=== PATIENT | female | born 1935 | race Caucasian/White ===

== ENCOUNTER → 2023-08-24 14:36 | Outpatient (REF) | payer MEDICARE, OTHER, SELFPAY | LOC: DHCBC MAIN 14:36 | PROVIDERS: ATTENDING PHYSICIAN Nurse Practitioner; FAMILY PHYSICIAN Family Medicine | DX: I10 Essential (primary) hypertension (principal); R00.2 Palpitations; I47.10 Supraventricular tachycardia, unspecified; I77.810 Thoracic aortic ectasia | CPT/HCPCS: 93306 ==

== ENCOUNTER → 2023-09-07 14:49 | Outpatient (REF) | payer MEDICARE, OTHER, SELFPAY | LOC: HWRAD 14:49 | PROVIDERS: ATTENDING PHYSICIAN Internal Medicine Cardiovascular Disease; FAMILY PHYSICIAN Family Medicine | DX: I77.89 Other specified disorders of arteries and arterioles (principal); R00.2 Palpitations | CPT/HCPCS: 71275; Q9967 ==

== ENCOUNTER 2023-09-15 16:44 | Emergency (ER) | payer MEDICARE, OTHER, SELFPAY ==
[2023-09-15 16:46] VITALS: BP 153/101
[2023-09-15 17:16] LABS: % Eosinophils 2.6 % (0-6); % Immature Granulocytes 0.4 % (0-0.5); % Lymphocytes 32.7 % (20.5-51.1); % Neutrophils 53.3 % (42.2-75.2); Absolute Basophils 0.1 10^3/uL (0-0.2); Absolute Eosinophils 0.2 10^3/uL (0-0.7); Absolute Lymphocytes 2.4 10^3/uL (1.2-3.4); Absolute Monocytes 0.7 10^3/uL (0.1-0.6); Absolute Neutrophils 3.9 10^3/uL (1.4-6.5); Hematocrit 41.2 % (37.0-47.0); Hemoglobin 13.6 g/dL (12.0-16.0); Mean Corpuscular Hgb 28.2 pg (27.0-31.0); Mean Corpuscular Volume 85.5 fL (81.0-99.0); Mean Platelet Volume 9.9 fL (7.4-10.4); Nucleated Red Blood Cells % 0 %; Platelet Count 270 10^3/uL (130-400); Red Blood Cell Count 4.82 10^6/uL (4.20-5.40); Red Cell Dist. Width 15.2 % (11.5-14.5); White Blood Cell Count 7.3 10^3/uL (4.8-10.8)
[2023-09-15 17:39] LABS: Troponin I < 0.012 ng/ml
[2023-09-15 17:52] LABS: ALT (SGPT) 37 U/L (0-35); AST (SGOT) 31 U/L (14-36); Alkaline Phosphatase 125 U/L (38-126); Blood Urea Nitrogen 18 mg/dl (7-17); Calcium 10.1 mg/dl (8.4-10.2); Carbon Dioxide 27 mmol/L (22-30); Chloride 96 mmol/L (98-107); Glucose 101 mg/dl (70-99); Sodium 132 mmol/L (135-145); Total Bilirubin 0.7 mg/dl (0.2-1.3); Total Protein 7.5 g/dl (6.3-8.2); eGFR > 60.00
[2023-09-15 18:45] VITALS: BP 174/84
--- NOTE | 2023-09-15 19:10 | ED.GENMED ---
History of Present Illness
General
Chief Complaint: Back Pain
Source: patient
Exam Limitations: none
Time Seen by Provider: 09/15/23 18:36
Travel History
Have you had any contact with someone who has COVID-19?: No
Do you have any symptoms of coronavirus? Fever > 100 degrees, chills, cough, shortness of breath, sore throat, loss of taste or smell, muscle aches, or headache?: No
History of Present Illness
History of Present Illness:
This is a 88 year old female that comes in with c/o upper back pain. States that today she felt like her left arm was numb. States that she also had some discomfort in the right sided of the neck into the shoulder. States that her back feels like
somebody slapped her in the back. Patient called Dr. Lilly office and was told to come to the ER for evaluation. States that she does have a slight headache. Denies any fever, chills, chest pain, SOB, abd pain, nausea, vomiting, diarrhea,
dizziness, urinary burning.
Past History
Past History
ED Past Medical History: GERD, Hypercholesterolemia, Psychiatric (Anxiety, ) and Other (Ascending thoracic Thoracic )
ED Past Surgical History: None
Social History
Tobacco: Non-smoker
Alcohol: None
Drug: None
Living: alone
Employment: Retired
Review of Systems
Review of Systems
All Other Systems: ROS reviewed and negative except as documented in HPI and ROS
Constitutional: Reports no symptoms; Denies fever or chills
EENT: Reports no symptoms
Respiratory: Reports no symptoms; Denies cough or trouble breathing
Cardiac: Reports no symptoms; Denies chest pain
ABD/GI: Reports no symptoms; Denies abdominal pain, nausea, vomiting or diarrhea
: Reports no symptoms; Denies dysuria, frequency or urgency
Musculoskeletal: Reports neck pain (right sided into shoulder) and back pain (Mid back pain)
Skin: Reports no symptoms
Neurological: Reports numbness (tingling left arm )
Psychiatric: Reports no symptoms
Phy Exam
General Physical Exam
General Presentation: well appearing and no apparent distress
General age: appears stated age
General Skin: warm and dry
General Habitus: elderly
General Mental: alert
General Hydration: appears well hydrated
ENT Exam
ENT Exam: TM's normal, pharynx normal and neck supple
Eye Exam
Eye Exam: EOMI
Cardiovascular Exam
Cardiovascular Exam: regular rate/rhythm, no edema and normal peripheral pulses
Pulmonary Exam
Pulmonary Exam: lungs clear, no respiratory distress, no rales, chest non tender, no crackles, no rhonchi, no wheezing and no cough
Gastrointestinal Exam
Gastrointestinal Exam: normal bowel sounds, non tender, soft, no organomegaly, no pulsatile mass and non distended
Musculoskeletal Exam
Musculoskeletal Exam: full ROM (Patient stable on her feet and moving all extremities. ) and no edema
Skin Exam
Skin Exam: normal color, warm/dry, no rash and no petechia
Psychiatric Exam
Psychiatric Exam: normal mood/affect
Course
Orders/Labs/Results
Orders:
Orders
09/15/23 16:54
Electrocardiogram (*1) Urgent
Reason for Study: Palpitations
09/15/23 16:55
EKG- Treatment ONCE
09/15/23 17:07
CMP [Comprehensive Metabolic Panel] Urgent
Complete Blood Count/With Diff Urgent
Troponin I Urgent
09/15/23 19:38
0.9% Sodium Chloride 1000 ml [Nss] 1,000 ml IV BOLUS
09/15/23 19:39
CT Chest Angio W/wo Iv Contras Urgent
Comment: History of Ascending Thoracic aortic aneurysm
Reason For Exam: Upper back pain
Abnormal Lab Results
09/15/23
17:07
RDW 15.2 H %
(11.5-14.5)
Absolute Monos (auto) 0.7 H 10^3/uL
(0.1-0.6)
Monocytes % 10.0 H %
(1.7-9.3)
Sodium 132 L mmol/L
(135-145)
Chloride 96 L mmol/L
(98-107)
BUN 18 H mg/dl
(7-17)
Glucose 101 H mg/dl
(70-99)
ALT 37 H U/L
(0-35)
09/15/23 17:07
09/15/23 17:07
sodium slightly low. chloride slightly low. Slight Dehydration. Glucose nonfasting. ALT slightly elevated. Troponin <0.012
Vital Signs
Initial and Last Documented VS:
Initial Vital Signs
Temp Pulse Resp BP Pulse Ox
98.0 F 74 18 153/101 97
09/15/23 16:46 09/15/23 16:46 09/15/23 16:46 09/15/23 16:46 09/15/23 16:46
Last Documented Vital Signs
Temp Pulse Resp BP Pulse Ox
98.0 F 62 20 139/76 97
09/15/23 16:46 09/15/23 22:06 09/15/23 22:06 09/15/23 22:06 09/15/23 22:06
MDM/Problems Addressed
Differential Diagnosis Includes:
Ascending thoracic aortic aneurysm change, Musculoskeletal pain.
MDM/Problems Addressed:
This is a 88 year old female that comes in with upper back pain and earlier today had numbness in the left arm. States that she also has right sided neck and shoulder discomfort. States that she feels better now that she is at the hospital. patient
called. Dr. Lilly office and was told to come to the ER for evaluation.
Explained to patient ther her blood work shows very slight Dehydration. Her Troponin is normal. Explained that with her diagnoses of a Ascending Thoracic aortic aneurysm and her c/o back pain the went patient to come in and make sure this is not
increasing in size. Explained that a CT chest would be needed. Patient states that she is not sure if she wants this. Stats that she has an appointment with Dr. Velarde. Patient is thinking this over.
Patient has agreed to CTA of chest but states that no mater what the results she is going home
Back into see patient. Patient remains pain free. Reviewed the CTA of the chest. Explained that the difference in size is very slight and it may be the difference in the radiologist who is reading the CT scan. Patient can use Tylenol 1000mg every 6
hours for any body aches. Follow up with the Dr. Velarde and her family doctor. Return with any concerns.
Chronic conditions affecting care:
Ascending Thoracic Aortic aneurysm.
Acute Exacerbation and/or Progression of Chronic Illness:
NA
*Radiology
Radiology exam reviewed: radiology read reviewed (CTA- No acute pathology of the chest identified. Large 5.7cm ascending aortic aneurysm. Stable. )
*Pulse Oximetry
Patient hypoxic: no
*EKG
Interpreted by ED Provider?: Yes
Heart Rate: 70
Rate: normal
Rhythm: sinus
Cotter: left axis deviation
Interval: normal interval
QRS Pattern: normal QRS
Ischemia: no ischemia
*Belt Picker Interpretation
Rate: normal
Heart Rate: 62
Rhythm: sinus
*Critical Care Note
Total Time (30-74mins, 75-104mins- exclusive of procedures): Not Applicable
ED Attending Note
-
Portions of this chart may have been created with voice recognition software.� Occasional wrong word or��sound alike� substitutions may have occurred due to the inherent limitations of voice recognition software.
Discharge Plan
Departure
Patient Disposition: Home (Routine Discharge)
Date of Disposition: 09/15/23
Time of Disposition: 22:26
Patient with high blood pressure during this ER visit?: Yes
Condition: Good
Covid-19: Not Applicable
Discharge Problem:
Mid back pain
Instructions: Upper Back Pain (DC), BLOOD PRESSURE
Prescriptions:
No Action
lorazepam 0.5 MG tablet
0.5 mg PO BIDPRN PRN (Reason: anxiety)
ibuprofen 200 MG tablet
400 mg PO BIDPRN PRN (Reason: SINUS HEADACHES)
bisacodyl 5 MG tablet,delayed release (DR/EC)
5 mg PO DAILYPRN PRN (Reason: CONSTIPATION)
fluticasone propionate 1 SPRAY spray,suspension
1 spray intranasal Q24H
famotidine [Pepcid] 40 mg Tablet
20 mg PO BID
Theragen Tablet
1 tab PO DAILY
potassium chloride 20 mEq Packet
30 meq PO DAILY
metoprolol tartrate [Lopressor] 50 mg Tablet
50 mg PO HS
cholecalciferol (vitamin D3) [Vitamin D3] 25 mcg (1,000 unit) Tablet
25 mcg PO DAILY
Metamucil Fiber Thin 2 gram Wafer
2 wafer PO DAILY
amlodipine 2.5 mg Tablet
2.5 mg PO DAILY
metoprolol tartrate
75 mg PO AMHS
Referrals:
Kyle Cain DO [Family Provider] - Call in 1-3 days for appt
Gautam Velarde MD [Active] - Keep scheduled appt
Activity Restrictions/Additional Instructions:
As discussed, your blood work shows that you are very slightly Dehydration. Please increase your water intake to 8-8oz glasses daily. Your CT of the chest shows that you have a Ascending Thoracic Aortic aneurysm. This is stable at this time. Please
follow up with Dr. Velarde as scheduled. You may take Tylenol 1000mg every 6 hours for any body aches. Follow up with the family doctor for recheck. IF YOU HAVE ANY OTHER CONCERNS PLEASE RETURN TO THE EMERGENCY ROOM.
Interventions
Interventions:
*Risk Screen - Suicide Last Done: 09/15/23 18:45
*General Assessment Last Done: 09/15/23 18:45
*Neglect/Abuse Screening Last Done: 09/15/23 18:45
*ED COVID-19 Vaccine History Last Done: 09/15/23 18:45
ED-Musculoskeletal Assessment Last Done: 09/15/23 18:45
[2023-09-15 19:28] VITALS: BP 134/88
[2023-09-15 19:31] VITALS: BMI 22.4
[2023-09-15] MEDS: NSS 1000 IV (19:47)
[2023-09-15 20:26] VITALS: BP 126/70
[2023-09-15 21:13] VITALS: BP 123/73
[2023-09-15 22:06] VITALS: BP 139/76
== END 2023-09-15 22:45 | disposition home or self-care (01) ==
LOC: EMR 16:44
PROVIDERS: Emergency Medicine; EMERGENCY PHYSICIAN Emergency Medicine; FAMILY PHYSICIAN Family Medicine
DX: M54.6 Pain in thoracic spine (principal); I71.21 Aneurysm of the ascending aorta, without rupture; R03.0 Elevated blood-pressure reading, without diagnosis of hypertension
CPT/HCPCS: 99285; 96360; 71275; 80053; 84484; 85025; 93005; Q9967

== ENCOUNTER 2023-10-01 16:43 | Emergency (ER) | payer MEDICARE, OTHER, SELFPAY ==
[2023-10-01] VITALS (11 sets, daily range): BP systolic 141–176; BP diastolic 86–104
[2023-10-01 19:36] LABS: % Basophils 0.8 % (0-2); % Eosinophils 1.4 % (0-6); % Immature Granulocytes 0.2 % (0-0.5); % Lymphocytes 30.2 % (20.5-51.1); % Monocytes 11.2 % (1.7-9.3); % Neutrophils 56.2 % (42.2-75.2); Absolute Basophils 0.1 10^3/uL (0-0.2); Absolute Eosinophils 0.1 10^3/uL (0-0.7); Absolute Monocytes 0.7 10^3/uL (0.1-0.6); Absolute Neutrophils 3.7 10^3/uL (1.4-6.5); Hematocrit 39.4 % (37.0-47.0); Hemoglobin 13.4 g/dL (12.0-16.0); Mean Corpuscular Hgb 28.3 pg (27.0-31.0); Mean Corpuscular Volume 83.1 fL (81.0-99.0); Mean Platelet Volume 9.5 fL (7.4-10.4); Nucleated Red Blood Cells % 0 %; Platelet Count 206 10^3/uL (130-400); Red Blood Cell Count 4.74 10^6/uL (4.20-5.40); Red Cell Dist. Width 14.9 % (11.5-14.5); White Blood Cell Count 6.6 10^3/uL (4.8-10.8)
[2023-10-01] MEDS: LOPRESSOR 50 MG PO (19:47)
[2023-10-01 19:52] LABS: ALT (SGPT) 22 U/L (0-35); AST (SGOT) 30 U/L (14-36); Albumin 4.1 g/dl (3.5-5.0); Alkaline Phosphatase 99 U/L (38-126); Blood Urea Nitrogen 14 mg/dl (7-17); Calcium 9.8 mg/dl (8.4-10.2); Carbon Dioxide 24 mmol/L (22-30); Chloride 100 mmol/L (98-107); Glucose 93 mg/dl (70-99); Potassium 4.2 mmol/L (3.5-5.1); Sodium 133 mmol/L (135-145); Total Bilirubin 1.3 mg/dl (0.2-1.3); Total Protein 7.3 g/dl (6.3-8.2); eGFR > 60.00
[2023-10-01] MEDS: LOPRESSOR 25 MG PO (19:52)
[2023-10-01 20:01] LABS: Troponin I < 0.012 ng/ml
--- NOTE | 2023-10-01 21:03 | ED.GENMED ---
History of Present Illness
General
Chief Complaint: Blood Pressure Problem
Source: patient
Time Seen by Provider: 10/01/23 18:40
Travel History
Have you had any contact with someone who has COVID-19?: No
Do you have any symptoms of coronavirus? Fever > 100 degrees, chills, cough, shortness of breath, sore throat, loss of taste or smell, muscle aches, or headache?: No
History of Present Illness
History of Present Illness:
Pt presents c/o elevated blood pressure. Pt also feels flushed and mild headache. No focal weakness, numbness, tingling. No chest pain but did have some mid back discomfort. Pt has been feeling these symptoms for the past several hours.
Past History
Past History
ED Past Medical History: GERD, Hypercholesterolemia, Psychiatric (Anxiety, ) and Other (Ascending thoracic Thoracic )
ED Past Surgical History: None
Social History
Tobacco: Non-smoker
Alcohol: None
Drug: None
Living: alone
Employment: Retired
Phy Exam
Physical Exam
Physical Exam:
General: Awake, Alert, Oriented X3. No acute distress.
Vitals: unremarkable
Head: Atraumatic
Eyes: Pupils equal, EOMI
Throat: Airway intact, no exudates
Neck: Trachea midline
Lungs: Clear and equal b/l
Heart: Regular rate, no murmurs
Abd: Soft, Nontender, No pulsatile mass
Neuro: Nonfocal
Extremities: pulses equal b/l, no edema
Course
Orders/Labs/Results
Orders:
Orders
10/01/23 16:49
Electrocardiogram (*1) Urgent
Reason for Study: Hypertension, Benign
EKG- Treatment ONCE
10/01/23 19:19
HydrALAZINE [Apresoline] 5 mg IV NOW STA
10/01/23 19:26
Metoprolol [Lopressor] 50 mg PO NOW STA
10/01/23 19:30
Complete Blood Count/With Diff Urgent
Comprehensive Metabolic Panel Urgent
Troponin I Urgent
10/01/23 19:50
Metoprolol [Lopressor] 25 mg PO NOW STA
Abnormal Lab Results
10/01/23
19:30
RDW 14.9 H %
(11.5-14.5)
Absolute Monos (auto) 0.7 H 10^3/uL
(0.1-0.6)
Monocytes % 11.2 H %
(1.7-9.3)
Sodium 133 L mmol/L
(135-145)
10/01/23 19:30
10/01/23 19:30
Vital Signs
Initial and Last Documented VS:
Initial Vital Signs
Temp Pulse Resp BP Pulse Ox
98.5 F 74 18 168/101 96
10/01/23 16:45 10/01/23 16:45 10/01/23 16:45 10/01/23 16:45 10/01/23 16:45
Last Documented Vital Signs
Temp Pulse Resp BP Pulse Ox
98.5 F 60 19 152/94 96
10/01/23 16:45 10/01/23 21:00 10/01/23 21:00 10/01/23 20:40 10/01/23 21:00
MDM/Problems Addressed
Differential Diagnosis Includes:
Uncontrolled hypertension, ACS,
MDM/Problems Addressed:
Patient's labs are unremarkable including troponin. No ischemic changes on EKG. Blood pressure moderately elevated but not significantly so. Patient stable for outpatient follow-up.
*Pulse Oximetry
Patient hypoxic: no
*EKG
Interpreted by ED Provider?: Yes
Interpretation: normal
Rate: normal
Rhythm: sinus
Nicollet: normal axis
Interval: normal interval
QRS Pattern: normal QRS
Ischemia: no ischemia
*Technical Support Assistant Interpretation
Rate: normal
Interpretation: normal
Rhythm: sinus
*Critical Care Note
Total Time (30-74mins, 75-104mins- exclusive of procedures): Not Applicable
ED Attending Note
-
Portions of this chart may have been created with voice recognition software.� Occasional wrong word or��sound alike� substitutions may have occurred due to the inherent limitations of voice recognition software.
Discharge Plan
Departure
Patient Disposition: Home (Routine Discharge)
Date of Disposition: 10/01/23
Time of Disposition: 21:06
Patient with high blood pressure during this ER visit?: Yes
Condition: Fair
Covid-19: Not Applicable
Discharge Problem:
Hypertension
Instructions: High Blood Pressure (DC)
Prescriptions:
No Action
lorazepam 0.5 MG tablet
0.5 mg PO BIDPRN PRN (Reason: anxiety)
ibuprofen 200 MG tablet
400 mg PO BIDPRN PRN (Reason: SINUS HEADACHES)
bisacodyl 5 MG tablet,delayed release (DR/EC)
5 mg PO DAILYPRN PRN (Reason: CONSTIPATION)
fluticasone propionate 1 SPRAY spray,suspension
1 spray intranasal Q24H
famotidine [Pepcid] 40 mg Tablet
20 mg PO BID
Theragen Tablet
1 tab PO DAILY
potassium chloride 20 mEq Packet
30 meq PO DAILY
metoprolol tartrate [Lopressor] 50 mg Tablet
50 mg PO HS
cholecalciferol (vitamin D3) [Vitamin D3] 25 mcg (1,000 unit) Tablet
25 mcg PO DAILY
Metamucil Fiber Thin 2 gram Wafer
2 wafer PO DAILY
amlodipine 2.5 mg Tablet
2.5 mg PO DAILY
metoprolol tartrate
75 mg PO AMHS
Referrals:
Kyle Cain DO [Family Provider] - Follow up in 2-3 days
Raheel Anne MD [Active] - Follow up in 5-7 days
Activity Restrictions/Additional Instructions:
YOUR BLOOD PRESSURE WAS ELEVATED BUT IT IS COMING DOWN
WE GAVE YOU YOUR NIGHT TIME DOSE OF METOPROLOL TONIGHT
YOU CAN TAKE YOUR BLOOD PRESSURE READINGS 2 OR 3 TIMES A DAY
YOU SHOULD CALL YOUR PRACTICE COORDINATOR FOR AN APPOINTMENT
IN THE MEANTIME IF YOU CANNOT MOVE UP YOUR APPOINTMENT THEN REACH OUT TO YOUR FAMILY DOCTOR
RETURN FOR: SEVERE HIGH BLOOD PRESSURE(200/100 OR MORE), SEVERE CHEST PAIN, PASSING OUT, OR ANY CONCERNS.
YOU CAN TAKE YOUR LORAZEPAM NEEDED IF YOU ARE ANXIOUS
Interventions
Interventions:
*Risk Screen - Suicide Last Done: 10/01/23 16:45
*General Assessment Last Done: 10/01/23 16:45
*Neglect/Abuse Screening Last Done: 10/01/23 16:45
ED- Fall Risk Assessment Last Done: 10/01/23 21:18
*ED COVID-19 Vaccine History Last Done: 10/01/23 16:45
*Nursing Disposition Last Done: 10/01/23 21:18
ED- Cardiac Assessment Last Done: 10/01/23 17:24
ED- Neurological Assessment Last Done: 10/01/23 17:24
ED- Pulmonary Assessment Last Done: 10/01/23 17:24
Discharge Date and Time
Discharge Date/Time: 10/01/23 21:30
== END 2023-10-01 21:30 | disposition home or self-care (01) ==
LOC: EMR 16:43
PROVIDERS: Physician Assistant; EMERGENCY PHYSICIAN Emergency Medicine; FAMILY PHYSICIAN Family Medicine
DX: I10 Essential (primary) hypertension (principal); K21.9 Gastro-esophageal reflux disease without esophagitis; E78.00 Pure hypercholesterolemia, unspecified; F41.9 Anxiety disorder, unspecified
CPT/HCPCS: 99283; 80053; 84484; 85025; 93005

== ENCOUNTER 2023-11-30 14:38 | Emergency (ER) | payer MEDICARE, OTHER, SELFPAY ==
[2023-11-30 14:40] VITALS: BP 159/69
--- NOTE | 2023-11-30 17:05 | ED.MUSCINJ ---
HPI-Injury
General
Chief Complaint: Fall
Source: patient
Exam Limitations: none
Time Seen by Provider: 11/30/23 16:52
Travel History
Have you had any contact with someone who has COVID-19?: No
Do you have any symptoms of coronavirus? Fever > 100 degrees, chills, cough, shortness of breath, sore throat, loss of taste or smell, muscle aches, or headache?: No
History of Present Illness-Injury
Initial Injury comments:
88-year-old female presents for evaluation of a fall she had 2 days ago. She lost her balance and fell onto her right side. She hit the right side of her head and her right upper arm. No anticoagulants. No other complaints at this time.
Past History
Past History
ED Past Medical History: GERD, Hypercholesterolemia, Psychiatric (Anxiety, ) and Other (Ascending thoracic Thoracic )
ED Past Surgical History: None
Social History
Tobacco: Non-smoker
Alcohol: None
Drug: None
Living: alone
Employment: Retired
Phy Exam
Physical Exam
Physical Exam:
General: well appearing female NAD
HEENT: NC/AT PERRL
Heart: RRR, no murmurs
Lungs; CTA
MSK: right upper arm tender to touch without deformity and good ROM, c-spine nontender
Injury Course
Orders/Labs/Results
Orders:
Orders
11/30/23 14:[address] [CT Head W/o Iv Contrast] Urgent
Comment:
Reason For Exam: head injury
11/30/23 17:04
CR Humerus - Right Min 2 View* Urgent
Comment:
Reason For Exam: fall, pain
MDM/Problems Addressed
Differential Diagnosis Includes:
Fall. Right head injury right arm injury. Will evaluate for fracture of the skull or intracranial hemorrhage with CT. Evaluate for fracture location of the arm with an x-ray. This was a mechanical fall
*Critical Care Note
Total Time (30-74mins, 75-104mins- exclusive of procedures): Not Applicable
Update Note
Update Note:
CT head negative x-ray right humerus also negative. Patient reassured. Stable for discharge home with contusion
ED Attending Note
-
Portions of this chart may have been created with voice recognition software.� Occasional wrong word or��sound alike� substitutions may have occurred due to the inherent limitations of voice recognition software.
Discharge Plan
Departure
Patient Disposition: Home (Routine Discharge)
Date of Disposition: 11/30/23
Time of Disposition: 18:26
Patient with high blood pressure during this ER visit?: No
Discharge Problem:
Contusion
Instructions: Contusion (DC)
Prescriptions:
No Action
lorazepam 0.5 MG tablet
0.5 mg PO BIDPRN PRN (Reason: anxiety)
ibuprofen 200 MG tablet
400 mg PO BIDPRN PRN (Reason: SINUS HEADACHES)
bisacodyl 5 MG tablet,delayed release (DR/EC)
5 mg PO DAILYPRN PRN (Reason: CONSTIPATION)
fluticasone propionate 1 SPRAY spray,suspension
1 spray intranasal Q24H
famotidine [Pepcid] 40 mg Tablet
20 mg PO BID
Theragen Tablet
1 tab PO DAILY
potassium chloride 20 mEq Packet
30 meq PO DAILY
metoprolol tartrate [Lopressor] 50 mg Tablet
50 mg PO HS
cholecalciferol (vitamin D3) [Vitamin D3] 25 mcg (1,000 unit) Tablet
25 mcg PO DAILY
Metamucil Fiber Thin 2 gram Wafer
2 wafer PO DAILY
amlodipine 2.5 mg Tablet
2.5 mg PO DAILY
metoprolol tartrate
75 mg PO AMHS
Referrals:
Kyle Cain DO [Family Provider] -
Activity Restrictions/Additional Instructions:
Rest. You may use Tylenol if needed for pain. Return if worse otherwise follow-up with your family doctor
Interventions
Interventions:
*Risk Screen - Suicide Last Done: 11/30/23 16:07
*General Assessment Last Done: 11/30/23 16:07
*Neglect/Abuse Screening Last Done: 11/30/23 16:07
ED- Fall Risk Assessment Last Done: 11/30/23 16:07
ED-Musculoskeletal Assessment Last Done: 11/30/23 16:07
ED- Neurological Assessment Last Done: 11/30/23 16:07
Discharge Date and Time
Print Language: YAKUT
[2023-11-30 18:09] VITALS: BP 151/73
== END 2023-11-30 19:36 | disposition home or self-care (01) ==
LOC: EMR 14:38
PROVIDERS: EMERGENCY PHYSICIAN Emergency Medicine; FAMILY PHYSICIAN Family Medicine
DX: S00.93XA Contusion of unspecified part of head, initial encounter (principal); S49.91XA Unspecified injury of right shoulder and upper arm, initial encounter; W19.XXXA Unspecified fall, initial encounter
CPT/HCPCS: 99284; 70450; 73060